=== PATIENT | male | born 2000 ===

== ENCOUNTER 2022-06-30 07:06 | Emergency (ER) | payer OTHER, BC, SELFPAY ==
--- NOTE | ~2022-06-30 | XR_ITS ---
EXAMINATION: XR abdomen/kub 1V INDICATION: Left flank pain TECHNIQUE: Supine views of the abdomen were obtained on 2 radiographs. COMPARISON: CT from today FINDINGS: A 4 mm calcification projects over the left sacrum which may reflect the left ureteral ston e seen on CT. The bowel gas pattern is normal. There is a bone island of the left ilium. IMPRESSION: 1. 4 mm calcification projecting over the left sacrum which may reflect the left ureteral stone seen on CT. Reviewed, dictated and finalized at location B. [facility] IMPRESSION: 1. 4 mm calcification projecting over the left sacrum which may reflect the lef t ureteral stone seen on CT.
--- NOTE | ~2022-06-30 | CT_ITS ---
EXAMINATION: CT abdomen pelvis w con INDICATION: Left flank and left lower quadrant pain TECHNIQUE: Computed tomographic images of the abdomen and pelvis were obtained after the administrati on of 100 cc of Omnipaque 350 intravenous contrast. The dose-length product (DLP) was 436.72 mGy-cm. Automated exposure control and iterative reconstruction technique were employed. COMPARISON: None available FINDINGS: The lung bases are clear. The heart size is normal. The liver, spleen, pancreas, gallbladde r, and adrenal glands are normal. Cysts of the right kidney measure up to 10 mm. There are seven nono bstructing stones of the right kidney which measure up to 2 mm. There is a 4 mm stone projecting in t he left mid ureter. There is mild left hydroureteronephrosis. No pathologically enlarged abdominal or pelvic lymph nodes are identified. There is no free intraperitoneal gas or evidence of bowel obstruc tion. The appendix is normal. There is a circumscribed area of fat attenuation adjacent to the sigmoi d colon with subtle adjacent fat stranding. There is mild lumbar spondylosis. IMPRESSION: 1. 4 mm stone in the left mid ureter with mild left hydroureteronephrosis. 2. Subtle area of circumscribed fat attenuation adjacent to the sigmoid colon with mild associated fa t stranding, consistent with epiploic appendagitis. Reviewed, dictated and finalized at location B. GENCY DEPT TECH IMPRESSION: 1. 4 mm stone in the left mid ureter with mild left hydroureteronephrosis. 2. Subtle area of circumscribed fat attenuation adjacent to the sigmoid colon w ith mild associated fat stranding, consistent with epiploic appendagitis.
--- NOTE | 2022-06-30 07:22 | ED.GENADULT ---
HPI - General Adult General Chief complaint: Nausea/Vomiting/Diarrhea Stated complaint: abdominal pain Time Seen by Provider: 06/30/22 07:08 Source: RN notes reviewed History of Present Illness HPI narrative: Patient presents emergency room from home for left-sided flank and abdominal pain. Patient states that symptoms initially began approximately 5:30 AM this morning he states he awoken with pain that been severe in his left flank rating around to his left abdomen pain is described as sharp and stabbing states that 10 pain. Going back to sleep and then awoke with more severe pain at 6 AM states has been associate with nausea vomiting pain is described as sharp and stabbing radiates to the left lower quadrant states he is not taking thing for the pain he denies any fevers or chills chest pain shortness of breath or diarrhea Related Data Allergies Allergy/AdvReac Type Severity Reaction Status Date / Time amoxicillin Allergy Unknown Skin Verified 10/08/19 08:55 Reaction cephalexin Allergy Unknown Urticaria Verified 10/08/19 08:55 cheritussin Allergy Severe uriticaria Uncoded 10/13/19 07:47 Review of Systems Review of Systems: Gen.: Denies fevers or chills ENT: Denies congestion Respiratory: Denies shortness of breath or cough CV: Denies chest pain or palpitations GI: See HPI denies burning, urgency, frequency or hematuria Musculoskeletal: Denies back pain or muscle pain Neuro: Denies numbness, tingling, weakness or focal weakness Skin: Denies rash Except as documented, all other systems reviewed and negative PMFSH Past Medical History Medical History (Updated 06/30/22 @ 08:41 by Juan Bond DO) Patient denies significant medical history Social History Social History Smoking status: Never smoker Alcohol intake: never Exam Narrative: APPEARANCE: No acute distress, nontoxic, resting in bed EYES: EOMI HEENT: Normocephalic, atraumatic, OMM RESPIRATORY: No respiratory distress Clear to auscultation bilaterally with no rhonchi wheezing or rales. CARDIOVASCULAR: Regular rate and rhythm without murmurs rubs or gallops. ABDOMINAL: Soft, no rebound or guarding, nondistended tender palpation left lower quadrant no tenderness left upper quadrant, right upper quadrant right lower quadrant, left flank tenderness MUSCULOSKELETAl: Moves all extremities. No clubbing, cyanosis or edema. NEURO: Awake and alert. Following commands, speech normal, no focal deficits SKIN:: Warm, dry. No rashes lesions or abrasions PSYCHIATRIC: Normal affect/mood, Medical Decision Making MDM Narrative Medical decision making narrative: Following CT scan reevaluated patient states abdominal pain is completely resolved. Abdomen soft nontender I discussed with him the epiploic appendagitis states he had a mild stomach bug 3 days ago but is had no symptoms since patient's acute pain today is suspected be from his kidney stone I did discuss epiploic appendagitis need for follow-up with PCP in agreement Discussed with patient results of workup and diagnosis. Discussed need for follow-up with primary care, proper use of medication, and reasons to return to the emergency department. Patient understands and agrees to current treatment plan Lab Data Result diagrams: 06/30/22 07:25 06/30/22 07:25 Labs: Lab Results 06/30/22 06/30/22 06/30/22 Range/Units 07:25 07:25 07:25 WBC 6.4 (4.5-10.0) K/mm3 RBC 5.36 (4.6-6.20) M/mm3 Hgb 15.0 (14.0-18.0) g/dL Hct 44.6 (42.0-52.0) % MCV 83.2 (80-100) fl MCH 28.0 (26-34) pg MCHC 33.6 (32-36) g/dl RDW 13.2 (11.5-14.5) % Plt Count 179 (150-375) k/mm3 MPV 9.3 (7.4-10.4) fl Immature Gran % (Auto) 0.3 (0-0.5) % Neut % (Auto) 61.3 (45.5-73.1) % Lymph % (Auto) 30.3 (18.3-44.2) % [place] % (Auto) 6.7 (2.6-8.5) % Eos % (Auto) 1.1 (0-4.4) % Baso % (Auto) 0.3
[2022-06-30 07:34] LABS: Basophils Percent Auto 0.3 % (0.2-1.2); Eosinophils Absolute Auto 0.1 K/mm3 (0-0.3); Eosinophils Percent Auto 1.1 % (0-4.4); Hematocrit 44.6 % (42.0-52.0); Immature Granulocyte Absolute 0.02 K/mm3 (0.00-0.031); Immature Granulocyte Percent A 0.3 % (0-0.5); Lymphocytes Absolute Auto 1.93 K/mm3 (0.9-3.2); Lymphocytes Percent Auto 30.3 % (18.3-44.2); Mean Corpuscular HGB Conc 33.6 g/dl (32-36); Mean Corpuscular Volume 83.2 fl (80-100); Mean Platelet Volume 9.3 fl (7.4-10.4); Monocytes Absolute Auto 0.4 K/mm3 (0.1-0.6); Monocytes Percent Auto 6.7 % (2.6-8.5); Neutrophils Absolute Auto 3.9 K/mm3 (1.3-6.7); Neutrophils Percent Auto 61.3 % (45.5-73.1); Platelet Count Result 179 k/mm3 (150-375); Red Blood Count 5.36 M/mm3 (4.6-6.20); Red Cell Distribution Width 13.2 % (11.5-14.5); White Blood Count 6.4 K/mm3 (4.5-10.0)
[2022-06-30] MEDS: ONDANSETRON INJ 4 MG/2 ML VIAL IV PUSH (07:41)
[2022-06-30] MEDS: KETOROLAC 30 MG/ML VIAL (*BKC) IV PUSH (07:41)
[2022-06-30] MEDS: SODIUM CHLORIDE 0.9% IV 1,000 ML 999 ML IV CONT (07:41)
[2022-06-30 07:46] LABS: Alanine Aminotransferase 12 U/L (6-50); Albumin Level 4.9 g/dL (3.5-5.1); Alkaline Phosphatase 44 U/L (38-126); Anion Gap 16 mmol/L (8-16); Aspartate Amino Transferase 20 U/L (17-59); Bilirubin,Total 0.7 mg/dL (0.2-1.3); Blood Urea Nitrogen 14 mg/dL (9-20); Calcium 9.1 mg/dL (8.4-10.2); Carbon Dioxide 27 mmol/L (22-30); Chloride 98 mmol/L (98-107); Estimated CRCL calculation 117 ml/min; Estimated Glomerular Filt Rate > 60; Glucose 139 mg/dL (65-110); Lipase 79 U/L (23-300); Potassium 3.7 mmol/L (3.4-5.0); Sodium 141 mmol/L (137-145)
[2022-06-30 08:08] LABS: Bacteria Urine Trace /hpf; Mucus Urine Few /lpf; RBC Urine >75 /hpf (0-2); Squamous Epithelial Cell Urine Rare /hpf (Few)
[2022-06-30 08:31] LABS: Appearance Urine Clear (Clear); Bilirubin Urine 1+ (Negative); Blood Urine 3+ (Negative); Color Urine Yellow (Yellow); Glucose Urine UA Negative (Negative); Ketones Urine Negative (Negative); Leukocyte Esterase Ur Negative LEU/UL (Negative); Nitrate Urine Negative (Negative); Protein Urine 1+ mg/dL (Negative); Specific Grav Ur >= 1.030 (1.001-1.035); Urobilinogen Urine 0.2 mg/dL (<2.0)
[2022-06-30 08:32] LABS: Add Urine Microscopic? YES
[2022-06-30] MEDS: TAMSULOSIN HCL 0.4 MG CAPSULE PO (09:01)
== END 2022-06-30 09:07 | disposition home or self-care (01) ==
PROVIDERS: Emergency Provider Emergency Medicine; PCP Family Medicine
DX: N13.2 Hydronephrosis with renal and ureteral calculous obstruction (principal); K63.89 Other specified diseases of intestine
CPT/HCPCS: 36415; 74018; 74177; 80053; 81001; 83690; 85025; 96361; 96374; 96375; 99284; A9270; J1885; J2405; J7030; Q9967